=== PATIENT | male | born 1975 | race Caucasian/White ===

== ENCOUNTER 2016-03-25 13:51 | Emergency (ER) | payer SELFPAY ==
[2016-03-25 14:44] VITALS: BP 129/72
--- NOTE | 2016-03-25 15:17 | UC ---
Skin Complaint HPI - HPI Summary HPI Summary: itchy rash for months. Goes away on Prednisone, then returns. Can't figure out what it's from. No history of same. No asthma, no allergies. No fevers. No new meds or soaps or pets. No clear allergen. Very itchy, keeps him awake. - History of Current Complaint Chief Complaint: UCRas Time Seen by Provider: 03/25/16 15:01 Stated Complaint: RASH Hx Obtained From: Patient Onset/Duration: Gradual Onset, Lasting Weeks - 8 Timing: Constant Onset Severity: Mild Current Severity: Moderate Location: Diffuse Character: Pruritus, Redness Aggravating: Nothing Alleviating: Nothing Associated Signs & Symptoms: Positive: Rash. Negative: Thirst, Weakness, Difficulty Breathing, Fever, Throat Tightening, Bruising, Tenderness, Red Streaks, Joint Swelling - Allergy/Home Medications Allergies/Adverse Reactions: Allergies Allergy/AdvReac Type Severity Reaction Status Date / Time No Known Allergies Allergy Verified 03/25/16 14:37 Home Medications: Home Medications Ephedrine-Guaifenesin [Primatene Asthma 12.5-200 mg] 1 tab PO DAILY 03/25/16 [ History Confirmed 03/25/16] Review of Systems Constitutional: Negative Skin: Rash Eyes: Negative ENT: Negative Respiratory: Negative Cardiovascular: Negative Gastrointestinal: Negative Genitourinary: Negative Motor: Negative Neurovascular: Negative Musculoskeletal: Negative Neurological: Negative Psychological: Negative All Other Systems Reviewed And Are Negative: Yes PMH/Surg Hx/FS Hx/Imm Hx Previously Healthy: Yes - Surgical History Surgical History: Yes Surgery Procedure, Year, and Place: HERNIA REPAIR A CHILD - Family History Known Family History: Negative: Diabetes - Social History Occupation: Employed Full-time Lives: With Family Alcohol Use: None Substance Use Type: Marijuana Substance Use Comment - Amount & Last Used: occasional Smoking Status (MU): Heavy Every Day Tobacco Smoker Type: Cigarettes Amount Used/How Often: 1 PPD Household Exposure Type: Cigarettes Physical Exam Triage Information Reviewed: Yes Appearance: Well-Appearing, No Pain Distress, Well-Nourished Vital Signs: Initial Vital Signs Temp 98.7 F 03/25/16 14:38 Pulse 85 03/25/16 14:38 Resp 16 03/25/16 14:38 BP 129/72 03/25/16 14:38 Pulse Ox 99 01/30/17 14:38 Vital Signs Reviewed: Yes Eye Exam: Normal ENT Exam: Normal Neck exam: Normal Respiratory Exam: Normal Respiratory: Positive: Lungs clear, Normal breath sounds, No respiratory distress, No accessory muscle use Cardiovascular Exam: Normal Cardiovascular: Positive: RRR, No Murmur, Pulses Normal, Brisk Capillary Refill Musculoskeletal Exam: Normal Neurological Exam: Normal Psychological Exam: Normal Skin Exam: Other - widespread red, slightly raised patches. Consistent with urticaria. On legs, arms abdomen, forehead. Course/Dx - Differential Diagnoses - Skin Complaint Differential Diagnoses: Allergic Reaction, Anaphylaxis, Cellulitis, Urticaria - Diagnoses Provider Diagnoses: hives Discharge - Discharge Plan Condition: Stable Disposition: HOME Prescriptions: Cimetidine TAB (NF) [Tagamet TAB (NF)] 400 mg PO DAILY PRN #30 tab PRN Reason: rash/itching hydrOXYzine HCL TAB* [Atarax TAB*] 50 mg PO BEDTIME PRN #30 tab PRN Reason: itching/rash Patient Education Materials: Dermatitis (ED) Referrals: Garcia Washburn MD [Medical Doctor] - Vishal Copeland MD [Primary Care Provider] - Additional Instructions: Call Dr. Washburn (Upholstery Handler) once you have your insurance. He may be able to figure out what you are reacting to.
== END 2016-03-25 15:27 | disposition home or self-care (01) ==
LOC: UCCORT 13:51
DX: L50.9 Urticaria, unspecified (principal); F12.90 Cannabis use, unspecified, uncomplicated; F17.210 Nicotine dependence, cigarettes, uncomplicated
CPT/HCPCS: 99212; G0463